=== PATIENT | female | born 1950 | race Caucasian/White ===

== ENCOUNTER → 2018-03-10 | Outpatient (CLI) | payer MEDICARE ==
[~2018-03-10] MED LIST: APIX5TAB PO; FLUT9.9S16 INH; MAGNESIUM PO; METO25TA35 PO; MULT1TAB60 PO; RAMI10CA36 PO; VITAMIN D PO
[2018-03-10 09:41] LABS: BASOPHILS # (AUTO) 0.01 x10^3/uL (0-0.1); BASOPHILS % (AUTO) 0 % (0-1); EOSINOPHILS % (AUTO) 3 % (1-7); LYMPHOCYTES # (AUTO) 1.17 x10^3/uL (1-3.4); LYMPHOCYTES % (AUTO) 17 % (22-44); MD NO; MEAN CORPUSCULAR HEMOGLOBIN 30.1 pg (27.0-34.8); MEAN CORPUSCULAR HGB CONC 32.9 g/dL (32.4-35.8); MEAN CORPUSCULAR VOLUME 91.3 fL (80-100); MEAN PLATELET VOLUME 9.6 fL (7.4-10.4); MONOCYTES # (AUTO) 0.44 x10^3/uL (0.2-0.8); MONOCYTES % (AUTO) 6 % (2-9); NEUTROPHILS # (AUTO) 5.27 x10^3/uL (1.8-6.8); NEUTROPHILS % (AUTO) 74 % (42-75); PLATELET COUNT 288 x10^3/uL (130-400); RED BLOOD COUNT 4.71 x10^6/uL (3.82-5.3); RED CELL DISTRIBUTION WIDTH 14.8 % (9.6-15.2)
[2018-03-10 09:51] LABS: INTERNATIONAL NORMALIZED RATIO 1.01 (0.93-1.1); PROTHROMBIN TIME 10.5 Seconds (9.6-11.5)
[2018-03-10 09:53] LABS: ANION GAP 8 mmol/L (5-15); CALCIUM 9.1 mg/dL (8.5-10.1); CHLORIDE 107 mmol/L (98-107); CREATININE 0.88 mg/dL (0.55-1.02)
[2018-03-10 10:04] LABS: MICROSCOPIC NOT IND
[2018-03-10 10:22] LABS: CULTURE INDICATED? NO
== END | disposition home or self-care (01) ==
LOC: STAR 08:10
PROVIDERS: ATTEND Neurological Surgery
DX: Z01.818 Encounter for other preprocedural examination (principal); M47.12 Other spondylosis with myelopathy, cervical region; M50.321 Other cervical disc degeneration at C4-C5 level
CPT/HCPCS: 36415; 71046; 72052; 80048; 81003; 85025; 85610; 85730; 93005

== ENCOUNTER 2018-03-14 07:29 | Inpatient (IN) | payer MEDICARE ==
[2018-03-10 08:38] VITALS: BP 165/89
[~2018-03-14] VITALS: Ht 165.1 cm; Wt 71.5 kg
[~2018-03-14 07:29] MED LIST changes: +BACITRACIN 50,000 UNIT ONE; +BUPIVACAINE/PF-EPI 0.5% 1:200K ONE; -FLUT9.9S16 INH; -MAGNESIUM PO; +THROMBIN 5,000 UNIT VIAL TP ONE; -VITAMIN D PO
[2018-03-14] MEDS ORDERED: LACTATED RINGERS 1,000 ML IV SCH (08:07)
[2018-03-14] MEDS ORDERED: MAGNESIUM PO (08:14)
[2018-03-14] MEDS ORDERED: VITAMIN D PO (08:14)
[2018-03-14] MEDS ORDERED: FLUT9.9S16 INH (08:14)
[2018-03-14] MEDS ORDERED: LIDOCAINE-MPF 1%, 2ML INFIL ONE (08:30)
[2018-03-14] MEDS ORDERED: FENTANYL PF 100 MCG/2ML ONE ×2 (08:51→13:04)
[2018-03-14] MEDS ORDERED: MIDAZOLAM 1 MG/ML, 2ML ONE (08:51)
[2018-03-14] MEDS ORDERED: PROPOFOL 50 ML ONE (08:59)
[2018-03-14] MEDS ORDERED: FAMOTIDINE 20 MG TABLET PO ONE (09:00)
[2018-03-14] MEDS ORDERED: PNEUMOCOCCAL 23 VACCINE IM-VACC ONE (09:00)
[2018-03-14] MEDS ORDERED: METOCLOPRAMIDE 10MG TABLET PO ONE (09:00)
[2018-03-14] MEDS ORDERED: GABAPENTIN 300 MG CAPSULE PO ONE (09:00)
[2018-03-14] MEDS ORDERED: ACETAMINOPHEN 500 MG TABLET PO ONE (09:00)
[2018-03-14] MEDS ORDERED: SUFentanil 50 MCG/ML, 2ML ONE ×2 (10:30)
[2018-03-14] MEDS ORDERED: NALOXONE 0.4 MG/ML, 1ML ONE (10:38)
[2018-03-14] MEDS ORDERED: KETAMINE 10 MG/ML, 20ML ONE (10:38)
[2018-03-14] MEDS ORDERED: PHENYLEPHRINE 10 MG/ML ONE (10:38)
[2018-03-14] MEDS ORDERED: GLYCOPYRROLATE 0.2MG/1ML, 5ML ONE (10:38)
[2018-03-14] MEDS ORDERED: PROPOFOL 10 MG/ML, 50ML ONE (10:38)
[2018-03-14] MEDS ORDERED: CEFAZOLIN 1,000 MG ONE (10:38)
[2018-03-14] MEDS ORDERED: ONDANSETRON 2MG/ML, 2ML ONE (10:38)
[2018-03-14] MEDS ORDERED: SUCCINYLCHOLINE 20 MG/ML, 10ML ONE (10:38)
[2018-03-14] MEDS ORDERED: DEXAMETHASONE 4 MG/ML, 1ML ONE (10:38)
[2018-03-14] MEDS ORDERED: EPHEDRINE 50 MG/ML, 1ML ONE (10:38)
[2018-03-14] MEDS ORDERED: ROCURONIUM 10 MG/ML,10ML ONE (10:38)
[2018-03-14] MEDS ORDERED: PROMETHAZINE 25 MG/ML, 1ML IV PRN (12:00)
[2018-03-14] MEDS ORDERED: FENTANYL PF 100 MCG/2ML IV PRN (12:00)
[2018-03-14] MEDS ORDERED: MORPHINE SULFATE 4 MG/ML, 1ML IVPush PRN (12:00)
[2018-03-14] MEDS ORDERED: DIAZEPAM 5 MG/ML, 2ML IVPush PRN (12:00)
[2018-03-14] MEDS ORDERED: OXYcodone 5 MG/5 ML ORAL.SOL UDC PO PRN (12:00)
[2018-03-14] MEDS ORDERED: ALBUTEROL SULFATE 2.5 MG/3 ML NPPB PRN (12:00)
[2018-03-14] MEDS ORDERED: OXYcodone 5 MG/5 ML ORAL.SOL UDC ONE (13:04)
[2018-03-14] MEDS ORDERED: LABETALOL 5MG/ML, 20ML ONE (13:16)
[2018-03-14] MEDS: LABETALOL 5MG/ML, 20ML IVPush PRN ×2 (13:20→13:34)
[2018-03-14] MEDS ORDERED: HYDROcodone/APAP 5/325 TABLET PO PRN (14:30)
[2018-03-14] MEDS ORDERED: BISACODYL 10 MG SUPP PR PRN (14:30)
[2018-03-14] MEDS ORDERED: MAGNESIUM HYDROXIDE 8%, 30ML UDC PO PRN (14:30)
[2018-03-14] MEDS ORDERED: HYDROmorphone 2MG TABLET PO PRN (14:30)
[2018-03-14] MEDS ORDERED: ONDANSETRON 2MG/ML, 2ML IV PRN (14:30)
[2018-03-14] MEDS ORDERED: morphine SULFATE 10 MG/ML, 1ML IV PRN (15:00)
[2018-03-14] MEDS ORDERED: DIPHENHYDRAMINE 50 MG/ML, 1ML IVPush PRN (15:00)
[2018-03-14] MEDS ORDERED: DIPHENHYDRAMINE 25 MG CAPSULE PO PRN (15:00)
[2018-03-14] MEDS ORDERED: TIZANIDINE 2MG TABLET PO PRN (15:00)
[2018-03-14] MEDS: CEFAZOLIN PMX 1GM/50ML 50 ML IVPB SCH ×2 (15:35→19:19)
[2018-03-14] MEDS: RAMIPRIL 10 MG CAPSULE PO SCH (15:35)
[2018-03-14] MEDS: NS + 20MEQ KCL 1,000 ML IV SCH (17:13)
[2018-03-14 19:19] VITALS: BP 118/72
[2018-03-14 19:46] VITALS: BP 149/78
[2018-03-15 00:18] VITALS: BP 114/66
[2018-03-15] MEDS: NS + 20MEQ KCL 1,000 ML IV SCH ×2 (03:00→08:39)
[2018-03-15 04:19] VITALS: BP 128/72
[2018-03-15] MEDS: OXYcodone/APAP 5/325MG TABLET PO PRN ×2 (07:12→10:56)
[2018-03-15 07:25] VITALS: BP 124/71
[2018-03-15] MEDS: RAMIPRIL 10 MG CAPSULE PO SCH (08:25)
[2018-03-15] MEDS ORDERED: OXYC1TAB7 PO (08:38)
[2018-03-15] MEDS ORDERED: TIZA2TAB PO (08:38)
[2018-03-15] MEDS ORDERED: MULTIVITAMIN 1 TABLET PO SCH (09:00)
[2018-03-15] MEDS ORDERED: SENNA/DOCUSATE TABLET PO SCH (09:00)
[2018-03-15] MEDS ORDERED: METOPROLOL TARTRATE 25 MG TABLET PO SCH (09:00)
[2018-03-15] MEDS ORDERED: FLUTICASONE NASAL SPRAY 16GM NAS SCH (09:00)
[2018-03-15] MEDS ORDERED: CHOLECALCIFEROL 1,000 UNIT TABLET PO SCH (09:00)
[2018-03-15] MEDS ORDERED: MAGNESIUM OXIDE 400 MG TABLET PO SCH (09:00)
[2018-03-15 09:59] VITALS: BP 111/69
== END 2018-03-15 11:50 | disposition home or self-care (01) | DRG 472 ==
LOC: ORIP 07:29 → 4NOR 14:13 → DCLOUNGE 03-15 11:20
PROVIDERS: ADMIT Neurological Surgery; ATTEND Neurological Surgery
PROC: 0RB30ZZ Excision of Cervical Vertebral Disc, Open Approach (ICD-10-PCS; 2018-03-14)
PROC: 4A11X4G Monitoring of Peripheral Nervous Electrical Activity, Intraoperative, External Approach (ICD-10-PCS; 2018-03-14)
PROC: 0RG20A0 Fusion of 2 or more Cervical Vertebral Joints with Interbody Fusion Device, Anterior Approach, Anterior Column, Open Approach (ICD-10-PCS; principal; 2018-03-14 10:30)
DX: M48.02 Spinal stenosis, cervical region (principal); M50.022 Cervical disc disorder at C5-C6 level with myelopathy; M47.12 Other spondylosis with myelopathy, cervical region; I10 Essential (primary) hypertension; Z90.89 Acquired absence of other organs; Z90.49 Acquired absence of other specified parts of digestive tract; Z80.9 Family history of malignant neoplasm, unspecified; Z82.49 Family history of ischemic heart disease and other diseases of the circulatory system; Z23 Encounter for immunization
CPT/HCPCS: 72040; 90732; 95938; 95941; C1713; J0690; J1100; J2250; J2270; J2310; J2405; J2704; J3010; J3480; J3490; C1776; J0330; J2370; J7120